=== PATIENT | female | born 1990 | race American Indian/Alaskan Native ===

== ENCOUNTER 2018-09-02 14:14 | Inpatient (IN) | payer MEDICAID ==
[2018-09-02] MEDS ORDERED: LACTATED RINGERS 1,000 ML ONE (15:05)
[2018-09-02] MEDS ORDERED: BRETHINE SUB-Q PRN (15:23)
[2018-09-02] MEDS ORDERED: STADOL IV PRN ×2 (15:23→17:10)
[2018-09-02] MEDS ORDERED: MINERAL OIL PO PRN (15:23)
--- NOTE | 2018-09-02 15:28 | History and Physical Report ---
History of Present Illness Date of admission: 09/02/18 14:16 Chief complaint: uterine contractions History of present illness: 27yo 40 4/7 weeks presents in active labor 9cm dilated. She denies loss of fluid or vaginal bleeding. She reports good movement. She has had regular care with [facility]. 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 Past History - Obstetrical History : 1 Medications and Allergies Allergies Allergy/AdvReac Type Severity Reaction Status Date / Time No Known Allergies Allergy Verified 09/02/18 14:43 - Vital Signs Vital signs: Vital Signs Temp Pulse Resp BP 98.1 F 88 20 108/69 09/02/18 14:44 09/02/18 14:44 09/02/18 14:44 09/02/18 14:44 Temp Pulse Resp BP Pulse Ox 98.1 F 88 20 108/69 09/02/18 14:44 09/02/18 14:58 09/02/18 14:44 09/02/18 14:58 - Physical Exam Vulva: both: normal (no lesions visualized) Vagina: Positive: other (no lesions visualized) - Obstetrical FHR: category 1 Cervical Dilatation: 9 Cervical Effacement Percentage: 90 station: -1 Uterine Contraction Pattern: Irregular Results All other labs normal. Assessment and Plan - Patient Problems (1) 40 weeks gestation of Current Visit: Yes Status: Acute Plan to address problem: Active labor Antepartum labs IVF AROM - mecoium. Will have NICU present at delivery. GBS negative Anticipate
[2018-09-02] MEDS ORDERED: PITOCin/NS 30 UNIT/500ML 30 UNITS/500 ML BAG IV SCH ×2 (16:00)
[2018-09-02] MEDS ORDERED: PITOCin/NS 20 UNIT/1000ML DRIP 20 UNITS/1,000 ML BAG IV SCH (16:00)
[2018-09-02 16:17] LABS: Hematocrit 39.4 % (30.3-42.9); Hemoglobin 13.2 gm/dl (10.1-14.3); Mean Corpuscular HGB Conc 33 % (30-34); Mean Corpuscular Volume 82 fl (79-97); Platelet Count 181 K/mm3 (140-440); Red Blood Count 4.84 M/mm3 (3.65-5.03); Red Cell Distribution Width 14.2 % (13.2-15.2)
[2018-09-02] MEDS ORDERED: XYLOCAINE 2% INFILTRATI ONE (16:23)
[2018-09-02] MEDS ORDERED: NACL 0.9% 1000 ML 1,000 ML ONE (18:46)
[2018-09-02] MEDS: LACTATED RINGERS 1,000 ML IV SCH ×2 (19:45→21:35)
[2018-09-02] MEDS ORDERED: SUBLIMAZE ONE (21:02)
[2018-09-02] MEDS ORDERED: NARCAN 2 MG/2 ML IV PRN (21:23)
--- NOTE | 2018-09-02 21:25 | Anesthesia Consultation ---
Anesthesia Consult and Med Hx Date of service: 09/02/18 - Airway Anesthetic Teeth Evaluation: Good ROM Head & Neck: Adequate Mental/Hyoid Distance: Adequate Mallampati Class: Class I Intubation Access Assessment: Good - Pulmonary Exam CTA: Yes - Cardiac Exam Cardiac Exam: RRR - Pre-Operative Health Status ASA Pre-Surgery Classification: ASA2 Proposed Anesthetic Plan: Epidural - Pulmonary Hx Smoking: No Hx Asthma: No COPD: No Hx Pneumonia: No - Cardiovascular System Hx Hypertension: No Hx Coronary Artery Disease: No - Central Nervous System Hx Neuromuscular Disorder: No Hx Seizures: No Hx Psychiatric Problems: No - Endocrine Hx Renal Disease: No Hx End Stage Renal Disease: No Hx Liver Disease: No Hx Insulin Dependent Diabetes: No Hx Non-Insulin Dependent Diabetes: No Hx Hypothyroidism: No Hx Hyperthyroidism: No - Hematic Hx Anemia: No Hx Sickle Cell Disease: No - Other Systems Hx Alcohol Use: No Hx Substance Use: No
[2018-09-02] MEDS ORDERED: fentaNYL-BUPIV 2 MCG/ML-0.125% 200 MCG/100 ML BAG EPIDURAL SCH (22:00)
[2018-09-03] MEDS ORDERED: PEPCID IV ONE ×2 (00:58→01:14)
[2018-09-03] MEDS ORDERED: REGLAN ONE (00:58)
[2018-09-03] MEDS ORDERED: BICITRA ONE (00:58)
[2018-09-03] MEDS ORDERED: LACTATED RINGERS 1,000 ML IV SCH (01:00)
[2018-09-03] MEDS ORDERED: ANCEF/STERILE WATER 2 GM/20 ML 2 GM/20 ML SYRINGE IV NR (01:00)
[2018-09-03] MEDS ORDERED: PITOCin/NS 20 UNIT/1000ML DRIP 20 UNITS/1,000 ML BAG IV SCH (01:00)
--- NOTE | 2018-09-03 01:00 | Event Note ---
Cervix: 7-8/80/-1 FHT: Variable decelerations, Category II Decision made to proceed to primary section due to Category II heart tracings and arrest of labor. Risks, benefits and alternatives discussed and informed consent signed. All questions answered and plan to proceed to primary csection.
[2018-09-03] MEDS ORDERED: MARCAINE 0.25% INFILTRATI ONE (01:14)
[2018-09-03] MEDS ORDERED: REGLAN IV ONE (01:14)
[2018-09-03] MEDS ORDERED: SUBLIMAZE ONE ×3 (01:14→02:48)
[2018-09-03] MEDS ORDERED: BICITRA PO ONE (01:15)
[2018-09-03] MEDS ORDERED: WATER FOR IRRIG STERILE IR ONE (01:30)
[2018-09-03] MEDS ORDERED: NACL 0.9% IR ONE (01:30)
[2018-09-03] MEDS ORDERED: XYLOCAINE MPF 2% ONE ×4 (01:33→02:57)
[2018-09-03] MEDS ORDERED: ASTRAMORPH PF 10MG/10ML ONE (01:35)
[2018-09-03] MEDS: PITOCin/NS 20 UNIT/1000ML DRIP 20 UNITS/1,000 ML BAG IV SCH ×2 (01:55→03:42)
[2018-09-03] MEDS ORDERED: ZOFRAN IV PRN (02:59)
[2018-09-03] MEDS ORDERED: TUCKS PAD TP PRN (02:59)
[2018-09-03] MEDS ORDERED: MORPHINE IV PRN (02:59)
[2018-09-03] MEDS ORDERED: NARCAN 0.4 MG/1 ML IV PRN (02:59)
[2018-09-03] MEDS ORDERED: LANSINOH TP PRN (02:59)
[2018-09-03] MEDS ORDERED: MYLICON PO PRN (02:59)
[2018-09-03] MEDS ORDERED: SODIUM CHLORIDE FLUSH SYRINGE 10 ML IV NR (03:00)
--- NOTE | 2018-09-03 03:02 | Operative Report ---
Operative Report Operative Report: PREOP Diagnosis 1. 40 4/7 weeks gestation 2. Category II heart tracings 3. Arrest of labor (descent) 4. Meconium stained amniotic fluid Postop Diagnosis 1. 40 4/7 weeks gestation 2. Category II heart tracings 3. Arrest of labor (descent) 4. Meconium stained amniotic fluid 5. Small for gestational age 6. Subserosal uterine fibroids Procedure:Primary low-transverse section Findings 1. Viable female infant, compround presentation (hand/vertex), weighing 5lb 2oz, g APGARS 8 at 1 min, 9 at 5 min 2. Small ~.5cm anterior body uterine fundal subserosal fibroids (2) 3. Body cord - lower extremity easily reduced Surgeon 1. Ira Canela MD Anesthesia: 1. Epidural I/O: EBL: 750ml UOP: 250ml, clear urine IVF 800ml LR Specimens removed: 1. Placenta -to pathology Complications: none Disposition: Patient taken to recovery room in stable condition INDICATIONS: The patient is a 27yo at 40 4/7weeks was undergoing augmentation of labor when Category II heart tracings were noted. The cervix remained 7-8cm/80/-1 and due to nonreassurring heart tracings the decision was made to proceed to primary section. The patient was consented and the risks including but not limited to bleeding, infections, injury to surrounding organs, potential injury to mother/infant were discussed. All questions were answered and informed consent signed. PROCEDURE: The patient was taken to the OR in stable condition. Adequate anesthesia was achieved with epidural anesthesia. A Angel catheter was in place. She wore SCDs for DVT prophylaxis. And received Ancef for infection prophylaxis. The patient was prepped and draped in the usual fashion and an additional time out was done. A Pfannestiel incision was made in the skin. The fascia was incised and the incision extended laterally. The superior and inferior aspect of the rectus muscle was dissected off of the fascia. Entry into the peritoneum was achieved. The incision was extended caudally. A bladder blade was placed. A low- transverse incision made made in the uterus and extended laterally. membranes were ruptured The head was brought to the hysterotomy and head and body delivered. The was bulb suctioned. The cord was clamped x 2, cut and infant handed off to awaiting refiner operator staff. The placenta was delivered intact and 20 units of IV Pitocin was added to LR fluids. The uterus was cleaned of all clots. The uterus was repaired with 0-Vicryl in a running, locked stitch and an imbricating layer of the same suture was used. The fascia was closed with 0 Vicryl. Subcutaneous layer reapproximated with 2-0 Vicryl. and Skin closed with 4-0 Vicryl. The patient tolerated the procedure well. All counts were correct x 3. Urine was noted to be clear at close of case. I was present and scrubbed for the entire procedure. The patient was taken to the recovery room in stable condition.
[2018-09-03] MEDS: FEOSOL PO SCH (10:52)
[2018-09-03] MEDS: LACTATED RINGERS 1,000 ML IV SCH (12:03)
[2018-09-03 15:13] LABS: Hematocrit 28.8 % (30.3-42.9); Hemoglobin 9.6 gm/dl (10.1-14.3)
[2018-09-03] MEDS: IBUPROFEN PO PRN (19:36)
[2018-09-03] MEDS: PERCOCET 5/325 PO PRN (19:38)
[2018-09-04] MEDS: IBUPROFEN PO PRN ×2 (05:00→18:35)
[2018-09-04] MEDS: MILK OF MAGNESIA PO PRN (05:00)
[2018-09-04] MEDS: FEOSOL PO SCH (11:01)
[2018-09-04] MEDS: PERCOCET 5/325 PO PRN ×2 (11:01→21:15)
--- NOTE | 2018-09-04 11:39 | Progress Note ---
Assessment and Plan A: /postop day 1 S/P primary low transverse section. Anemia secondary to and blood loss. P: Supplement with iron; encouraged ambulation. Subjective - Subjective Date of service: 09/04/18 Principal diagnosis: /postop day 1 S/P primary LTCS Interval history: /postop day 1 S/P primary LTCS. Doing well. Patient reports small amount of lochia. Angel catheter has been removed and patient is voiding without difficulty. Has not passed gas yet but feels she will soon. Ambulating well. Tolerating a clear liquid diet. Patient denies headache, chest pain, cough, shortness of breath, leg pain, heavy bleeding, or any other problems. She is and bottlefeeding. Patient reports: appetite normal, voiding normally, pain well controlled, ambulating normally, no dizzy ambulation, no flatus, no bowel movement, no nauseated [place]: doing well Objective - Vital Signs Latest vital signs: Vital Signs Temp Pulse Resp BP BP Pulse Ox 09/04/18 08:34 98.3 F 100 H 20 112/75 97 09/03/18 23:35 98.8 F 84 18 108/55 93 09/03/18 20:15 99.4 F 104 H 18 111/65 95 09/03/18 17:37 99.5 F 100 H 18 107/60 97 Intake and Output 09/03/18 09/04/18 09/04/18 23:59 07:59 15:59 Intake Total 1200 Output Total 1700 Balance -500 Intake: Oral 1200 Output: Urine 1700 Void 1700 Other: Total, Intake Amount 480 Total, Output Amount 900 # Voids Void 3 - Exam Cardiovascular: Present: Regular rate, Normal S1, Normal S2 Lungs: Present: Clear to auscultation Abdomen: Present: normal appearance, soft, normal bowel sounds. Absent: distention, tenderness, guarding, rigidity Uterus: Present: normal, firm, fundal height below umbilicus. Absent: bogginess, tenderness Extremities: Present: normal. Absent: tenderness, edema - Labs Labs: Abnormal lab results 09/03/18 Range/Units 14:27 Hgb 9.6 L D (10.1-14.3) gm/dl Hct 28.8 L D (30.3-42.9) %
[2018-09-05] MEDS: PERCOCET 5/325 PO PRN (05:32)
[2018-09-05] MEDS: IBUPROFEN PO PRN ×2 (10:47→22:15)
[2018-09-05] MEDS: FEOSOL PO SCH (10:48)
--- NOTE | 2018-09-05 13:29 | Progress Note ---
Assessment and Plan A: /postop day 2 S/P primary low transverse section. Anemia secondary to and blood loss. P: Continue iron supplementation. Continue ambulation. Anticipate discharge tomorrow. Subjective - Subjective Date of service: 09/05/18 Principal diagnosis: /postop day 2 S/P primary LTCS Interval history: /postop day 2 S/P primary LTCS. Doing well. Patient reports small amount of lochia. Patient is voiding without difficulty. Ambulating well. Passing gas. Tolerating a regular diet without nausea or vomiting. Patient denies headache, chest pain, cough, shortness of breath, chest pain, abdominal pain, heavy bleeding or any other problems. Patient reports: appetite normal, voiding normally, pain well controlled, flatus, ambulating normally, no dizzy ambulation, no nauseated : doing well Objective - Vital Signs Latest vital signs: Vital Signs Temp Pulse Resp BP Pulse Ox 09/05/18 09:18 98.6 F 91 H 20 117/72 96 09/04/18 23:30 98.5 F 89 17 103/60 97 09/04/18 17:26 99.6 F 112 H 20 113/64 99 Intake and Output 09/04/18 09/05/18 09/05/18 22:59 07:59 15:59 Intake Total Balance Intake: Oral Other: Total, Intake Amount # Voids Void # Bowel Movements - Exam Cardiovascular: Present: Regular rate, Normal S1, Normal S2, No murmurs Lungs: Present: Clear to auscultation Abdomen: Present: normal appearance, normal bowel sounds. Absent: distention, tenderness, guarding, rigidity Uterus: Present: normal, firm, fundal height at umbilicus. Absent: bogginess, tenderness Extremities: Present: normal, edema (mild pedal edema bilaterally). Absent: tenderness Incision: Present: normal, dry, intact
[2018-09-05] MEDS: MILK OF MAGNESIA PO PRN (22:12)
[2018-09-06] MEDS: PERCOCET 5/325 PO PRN (04:59)
--- NOTE | 2018-09-06 07:43 | Progress Note ---
Assessment and Plan A: /postop day 3 S/P primary LTCS. Anemia secondary to and blood loss. P: Discharge patient home today. /postop discharge instructions and warning signs discussed with patient in detail. Care of incision and activity restrictions discussed with patient. Advised patient to avoid IC, lifting and heavy housework, tub baths (pt. may take showers), driving, and stair climbing. Advised patient to follow up in 1 week at [facility] for incision check. Patient voiced understanding of instructions. Subjective - Subjective Date of service: 09/06/18 Principal diagnosis: /postop day 3 S/P primary LTCS Interval history: /postop day 3 S/P primary LTCS. Patient desires discharge today. Doing well. and bottlefeeding. Patient reports small amount of lochia. Patient is voiding without difficulty. Ambulating well. Passing gas. Tolerating a regular diet without nausea or vomiting. Patient denies headache, chest pain, cough, shortness of breath, chest pain, abdominal pain, heavy bleeding or any other problems. Patient reports: appetite normal, voiding normally, pain well controlled, flatus, ambulating normally, no dizzy ambulation, no nauseated [place]: doing well Objective - Vital Signs Latest vital signs: Vital Signs Temp Pulse Resp BP BP Pulse Ox 09/06/18 04:59 18 09/06/18 00:30 98.9 F 95 H 18 123/73 09/05/18 22:15 18 09/05/18 17:18 99.3 F 92 H 24 112/73 96 09/05/18 09:18 98.6 F 91 H 20 117/72 96 Intake and Output 09/05/18 09/05/18 09/06/18 15:59 23:59 07:59 Intake Total 300 120 Balance 300 120 Intake: Oral 300 Intake, Free Water 120 Other: Total, Intake Amount 300 # Voids Void 2 1 - Exam Cardiovascular: Present: Regular rate, Normal S1, Normal S2, No murmurs Lungs: Present: Clear to auscultation Abdomen: Present: normal appearance, soft, normal bowel sounds. Absent: distention, tenderness, guarding, rigidity Uterus: Present: normal, firm, fundal height below umbilicus. Absent: bogginess, tenderness Extremities: Present: normal. Absent: tenderness, edema Incision: Present: normal, dry, intact
--- NOTE | 2018-09-06 07:46 | Discharge Summary ---
Providers - Providers Date of Admission: 09/02/18 14:16 Date of discharge: 09/06/18 Attending physician: TOLU REGALADO None Primary care physician: TOLU REGALADO Hospitalization Reason for admission: induction of labor Delivery: Procedure: primary low transverse Incision: normal Other procedures: none complications: none Discharge diagnosis: IUP at term delivered [place] baby: female Pertinent studies: Labs Hospital course: Normal hospital course Condition at discharge: Good Disposition: DC-01 TO HOME OR SELFCARE - Discharge Diagnoses (1) Term delivered Status: Acute (2) Anemia, blood loss Status: Acute Plan - Discharge Medications Prescriptions: Ferrous Sulfate [Feosol 325 MG tab] 325 mg PO BID 30 Days #60 tablet Ibuprofen 800 mg PO Q6H PRN 10 Days #30 tablet MDD 3200mg PRN Reason: Pain, Moderate (4-6) oxyCODONE /ACETAMINOPHEN [Percocet 5/325] 1 tab PO Q4HR PRN 14 Days #30 tab PRN Reason: Pain , Severe (7-10) - Provider Discharge Summary Activity: routine, no sex for 6 weeks, no heavy lifting 4 weeks, no strenuous exercise Diet: routine Instructions: routine Additional instructions: [] Smoking cessation referral if applicable(refer to patient education folder for contact #) [] Refer to [facility] Booklet Call your doctor immediately for: * Fever > 100.5 * Heavy vaginal bleeding ( >1 pad per hour) * Severe persistent headache * Shortness of breath * Reddened, hot, painful area to leg or breast * Drainage or odor from incision. * Keep incision clean and dry at all times and follow doctor's instructions regarding bathing/showering - Follow up plan Follow up: TOLU REGALADO MD [Primary Care Provider] - 7 Days
[2018-09-06] MEDS: FEOSOL PO SCH (11:15)
[2018-09-06 13:11] VITALS: BP 114/73
== END 2018-09-06 11:30 | disposition home or self-care (01) | DRG 765 ==
LOC: TRG 14:14 → LD 14:16 → OB 09-03 04:49
PROVIDERS: ADMIT Obstetrics & Gynecology; ATTEND Obstetrics & Gynecology
PROC: 10907ZC Drainage of Amniotic Fluid, Therapeutic from Products of Conception, Via Natural or Artificial Opening (ICD-10-PCS; 2018-09-02)
PROC: 10D00Z1 Extraction of Products of Conception, Low, Open Approach (ICD-10-PCS; principal; 2018-09-03)
DX: O76 Abnormality in fetal heart rate and rhythm complicating labor and delivery (principal); O98.52 Other viral diseases complicating childbirth; O62.1 Secondary uterine inertia; O77.0 Labor and delivery complicated by meconium in amniotic fluid; O34.13 Maternal care for benign tumor of corpus uteri, third trimester; O99.02 Anemia complicating childbirth; D64.9 Anemia, unspecified; B00.9 Herpesviral infection, unspecified; D25.2 Subserosal leiomyoma of uterus; Z3A.40 40 weeks gestation of pregnancy; Z37.0 Single live birth
CPT/HCPCS: 36415; 82803; 85014; 85018; 85027; 86592; 86850; 86900; 86901; 88307; G0378; J0595; J2270; J2274; J2590; J2765; J3010; J3105; J7030; J7120

== ENCOUNTER 2019-12-12 22:00 | Observation (INO) | payer MEDICAID ==
[2019-12-13] MEDS ORDERED: DOCUSATE SODIUM 100 MG CAP PO PRN
[2019-12-13] MEDS ORDERED: ACETAMINOPHEN 325 MG TAB PO PRN
--- NOTE | 2019-12-13 00:28 | Ultrasound Report ---
ULTRASOUND OBSTETRIC LIMITED INDICATION / CLINICAL INFORMATION: R/O SROM. Clinical Gestational Age (GA): 38 weeks 0.days COMPARISON: None available. FINDINGS: HEART RATE (beats per minute): 149 AMNIOTIC FLUID INDEX (cm) = 7.9 (normal = 7-24 cm) PRESENTATION: Cephalic. ADDITIONAL FINDINGS: None. IMPRESSION: 1. No significant abnormality. Signer Name: Phoenix Quintero MD Signed: 12/13/2019 12:24 AM Workstation Name: [id number]
[2019-12-13 01:30] LABS: Basophils % (Auto) 0.2 % (0.0-1.8); Eosinophils % (Auto) 0.3 % (0.0-4.3); Hematocrit 36.8 % (30.3-42.9); Hemoglobin 12.1 gm/dl (10.1-14.3); Lymphocytes # (Auto) 1.5 K/mm3 (1.2-5.4); Lymphocytes % (Auto) 15.8 % (13.4-35.0); Mean Corpuscular HGB Conc 33 % (30-34); Mean Corpuscular Volume 81 fl (79-97); Monocytes # (Auto) 0.6 K/mm3 (0.0-0.8); Monocytes % (Auto) 6.3 % (0.0-7.3); Platelet Count 177 K/mm3 (140-440); Red Blood Count 4.56 M/mm3 (3.65-5.03); Red Cell Distribution Width 14.5 % (13.2-15.2)
--- NOTE | 2019-12-13 09:17 | Ultrasound Report ---
ULTRASOUND OBSTETRIC LIMITED INDICATION / CLINICAL INFORMATION: RITA. TECHNIQUE: Transabdominal ultrasound imaging. COMPARISON: 12/12/2019 FINDINGS: HEART RATE (beats per minute): 127 AMNIOTIC FLUID INDEX (cm) = 3.9 PRESENTATION: Cephalic. ADDITIONAL FINDINGS: None. IMPRESSION: Oligohydramnios Signer Name: Abhay Ash Jr, MD Signed: 12/13/2019 9:12 AM Workstation Name: [id number]
[2019-12-13] MEDS ORDERED: PRENATAL VIT27-FE FUMARATE-FOLIC ACID VIT TAB PO SCH (10:00)
--- NOTE | 2019-12-13 11:03 | History and Physical Report ---
History of Present Illness Date of examination: 12/13/19 Date of admission: 12/12/19 23:51 Chief complaint: Leaking of fluids History of present illness: 29 yo, @ 38.1 wks, initiated care with [facility] at 29.1 wks gestation as a transfer from [place]. Her has been complicated by closely spaced pregnancies and previous C/S. She reports to [facility] over night with reports of possible leaking. She reports +FM. Denies any VB. Her RITA-7.9 upon admission. RITA was repeated this am and found to be 3.9. Discussed findings with pt and explained that an RITA of 3.9 is consistent with oligohydramnios and that delivery is recommended. The pt request to . Explained that since she is a previous C/S, she is unable to be induced for labor with the use of any tocolytic drugs because of the increase risk of uterine rupture. Discussed the options of placing a rodriguez balloon if cervix is open at least 1 cm. If cervix if not open, explained that repeat C/S is required, as she is not currently in active labor. Mrs Arellano verbalized understanding and states that if cervix is not dilated enough for rodriguez balloon to be placed, she wishes to wait until the morning to see if spontaneous labor occurs. If spontaneous labor does not occur she will proceed with C/S in the morning. Advised Mrs. Arellaon that if she becomes febrile, then C/S is re commended at that time instead of waiting until the morning. Mrs. Arellano verbalized understanding of all of the above instructions and signed a 'Patient Refusal to Consent to Treatment' for the refusal of C/S at this time. Labs: B+, antibody negative; PAP normal; VDRL non-reactive urine culture negative; HBsAg negative; HIV negative; Hepatitis C antibody negative; 1 hr gtt - 97; Maternity 21 negative; GBS negative. 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 denies: smoking, alcohol abuse, prescription drug abuse, IV drug use - Obstetrical History Expected Date of Delivery: 12/26/19 Actual Gestation: 38 Week(s) 1 Day(s) : 2 Para: 1 Hx # Term Pregnancies: 1 Number of Pregnancies: 0 Spontaneous Abortions: 0 Induced : 0 Number of Living Children: 1 #1 Infant Gender: Female year: Birthweight: 2.325 kg Method of Delivery: Gestational age at delivery: 40 ( distress) Medications and Allergies Allergies Allergy/AdvReac Type Severity Reaction Status Date / Time No Known Allergies Allergy Verified 09/02/18 14:43 Home Medications Medication Instructions Recorded Confirmed Last Taken Type Ferrous Sulfate [Feosol 325 MG tab] 325 mg PO BID 30 Days #60 tablet 09/03/18 Unknown Rx Ibuprofen [Ibuprofen 800] 800 mg PO Q6H PRN 10 Days #30 09/03/18 Unknown Rx tablet MDD 3200mg oxyCODONE /ACETAMINOPHEN [Percocet 1 tab PO Q4HR PRN 14 Days #30 tab 09/03/18 Unknown Rx 5/325] Active Meds: Active Medications Acetaminophen (Tylenol) 650 mg PO Q4H PRN PRN Reason: Pain MILD(1-3)/Fever >100.5/PLAZA Docusate Sodium (Colace) 100 mg PO Q12H PRN PRN Reason: Constipation Lactated Ringer's (Lactated Ringers) 1,000 mls @ 125 mls/hr IV DIRECT TENISHA Multivitamins/Iron/Calcium ( Vitamin) 1 each PO QDAY TENISHA Review of Systems All systems: negative Genitourinary: leakage of fluid (clear fluids) - Vital Signs Vital signs: Vital Signs Pulse Pulse Ox 88 96 12/12/19 22:07 12/12/19 22:07 Temp Pulse Resp BP Pulse Ox 98.9 F 71 16 100/63 97 12/13/19 10:15 12/13/19 00:16 12/13/19 00:16 12/13/19 00:16 12/12/19 22:17 - Physical Exam Breasts: Positive: normal Cardiovascular: Regular rate Lungs: Positive: Normal air movement Abdomen: Positive: other (gravid) Genitourinary (Female): Positive: normal external genitalia, normal perenium Vagina: Positive: other (clear fluids) Uterus: Positive: enlarged (S=D) Extremities: Positive: normal Deep Tendon Reflex Grade: Normal +2 - Obstetrical FHR: category 1 Uterine Contraction Monitor Mode: External Cervical Dilatation: 0.5 (vertex) Cervical Effacement Percentage: 50 station: -3 Uterine Contraction Pattern: Irregular Uterine Tone Measurement Phase: Resting Results Result Diagrams: 12/13/19 Unknown Abnormal lab results 12/13/19 Range/Units Unknown MCH 27 L (28-32) pg Seg Neutrophils % 77.4 H (40.0-70.0) % All other labs normal. Assessment and Plan - Patient Problems (1) 38 weeks gestation of Current Visit: Yes Status: Acute (2) Oligohydramnios in [place] in third trimester Current Visit: Yes Status: Acute Plan to address problem: Admit to L & D Pt refused repeat C/S today Temp q hr, notify provider if febrile If not in spontaneous labor by tomorrow morning, repeat C/S (3) Previous section Current Visit: Yes Status: Acute
[2019-12-13] MEDS ORDERED: AMPICILLIN 2 GM in SODIUM CHLORIDE 0.9% 50 ML IV ONE (18:03)
[2019-12-13] MEDS ORDERED: AMPICILLIN/NS 2 GM/100 ML 2 GM/100 ML BAG IV ONE (20:00)
[2019-12-13] MEDS: LACTATED RINGERS 1,000 ML IV SCH (21:35)
[2019-12-14] MEDS ORDERED: AMPICILLIN/NS 1 GM/50 ML 1 GM/50 ML BAG IV SCH (04:04)
[2019-12-14] MEDS ORDERED: AMPICILLIN/NS 2 GM/100 ML 2 GM/100 ML BAG IV ONE (05:29)
--- NOTE | 2019-12-14 05:55 | Anesthesia Consultation ---
Anesthesia Consult and Med Hx Date of service: 12/14/19 - Airway Anesthetic Teeth Evaluation: Good ROM Head & Neck: Adequate Mental/Hyoid Distance: Adequate Mallampati Class: Class II Intubation Access Assessment: Probably Good - Pulmonary Exam CTA: Yes - Cardiac Exam Cardiac Exam: RRR - Pre-Operative Health Status ASA Pre-Surgery Classification: ASA2 Proposed Anesthetic Plan: Spinal - Pulmonary Hx Smoking: No Hx Asthma: No COPD: No Hx Pneumonia: No - Cardiovascular System Hx Hypertension: No Hx Coronary Artery Disease: No - Central Nervous System Hx Neuromuscular Disorder: No Hx Seizures: No Hx Psychiatric Problems: No - Endocrine Hx Renal Disease: No Hx End Stage Renal Disease: No Hx Liver Disease: No Hx Insulin Dependent Diabetes: No Hx Non-Insulin Dependent Diabetes: No Hx Hypothyroidism: No Hx Hyperthyroidism: No - Hematic Hx Anemia: No Hx Sickle Cell Disease: No - Other Systems Hx Alcohol Use: No Hx Substance Use: No
--- NOTE | 2019-12-14 05:56 | Anesthesia Day of Surgery ---
Anesthesia Day of Surgery - Day of Surgery Patient Examined: Yes Patient H&P Reviewed: Yes Patient is NPO: Yes
[2019-12-14] MEDS: LACTATED RINGERS 1,000 ML IV SCH (07:18)
--- NOTE | 2019-12-14 07:44 | Progress Note ---
Subjective - Subjective Date of service: 12/14/19 Interval history: patient uncomfortable FHT Category 1 [place]: irregular cervix: unable to check patient second to discomfort/soft copious clumpy discharge plan to repeat RITA and re--evaluate for plan of care Corine Ojeda MD Objective - Vital Signs Vital Signs: Vital Signs - 12hr 12/13/19 12/13/19 12/14/19 21:20 21:26 01:20 Temperature 98.5 F 98.3 F Pulse Rate 83 Blood Pressure 118/75 12/14/19 07:20 Temperature Pulse Rate 85 Blood Pressure 107/59 - Labs Labs: Abnormal Labs 12/13/19 Unknown MCH 27 L Seg Neutrophils % 77.4 H
[2019-12-14] MEDS ORDERED: hydrOXYzine PAMOATE 25 MG CAP PO PRN (08:06)
[2019-12-14] MEDS ORDERED: MORPHINE 2 MG/1 ML INJ IM ONE (08:08)
--- NOTE | 2019-12-14 08:40 | Discharge Summary ---
Providers - Providers Date of Admission: 12/12/19 23:51 Date of discharge: 12/14/19 Attending physician: MAGGI HOUGH Primary care physician: MAGGI HOUGH Hospitalization Reason for admission: other (R/O SROM) Delivery: other (undelivered) Discharge diagnosis: other (IUP at term; RITA - 7.9) Hospital course: See OB notes and U/S, RITA results Condition at discharge: Good Disposition: DC-01 TO HOME OR SELFCARE - Discharge Diagnoses (1) 38 weeks gestation of Status: Acute (2) Previous section Status: Acute Plan - Provider Discharge Summary Activity: other (as tolerated) Additional instructions: [] Smoking cessation referral if applicable(refer to patient education folder for contact #) [] Refer to [facility] Booklet Call your doctor immediately for: * Fever > 100.5 * Schedule appointment at office for 12/15/2019 - Follow up plan Follow up: JANY SALCEDO CNM [Advanced Practice Nurse] - 12/15/19
--- NOTE | 2019-12-14 09:09 | Ultrasound Report ---
OB ultrasound limited INDICATION: , evaluate amniotic fluid index COMPARISON: 12/13/2019 FINDINGS: There is a single intrauterine . The fetus is in a cephalic presentation. The amniotic fluid index is 7.9 cm on today's exam. heart rate is 133 bpm. The amniotic fluid index on yesterday' s examination was 3.9 cm. IMPRESSION: Amniotic fluid index is 7.9 cm on today's study. This is within the normal range. This has increased since yesterday's exam. Signer Name: Earle Yeung MD Signed: 12/14/2019 9:05 AM Workstation Name: [id number]
[2019-12-14 09:39] VITALS: BP 108/64
== END 2019-12-14 10:30 | disposition home or self-care (01) ==
LOC: TRG 22:00 → APU 22:04 → LD 23:51 → INTOOBSV 23:51 → TRG 23:51
PROVIDERS: ADMIT Obstetrics & Gynecology; ATTEND Obstetrics & Gynecology
DX: O41.03X0 Oligohydramnios, third trimester, not applicable or unspecified (principal); O34.219 Maternal care for unspecified type scar from previous cesarean delivery; Z3A.38 38 weeks gestation of pregnancy
CPT/HCPCS: 36415; 76815; 85025; 86592; 86850; 86900; 86901; 96365; 96372; 96376; G0378; J0290; J2270; J7120; 96366; Q0177